=== PATIENT | male | born 1985 | race Caucasian/White ===

== ENCOUNTER 2019-02-02 08:41 | Emergency (ER) | payer OTHER ==
[2019-02-02] MEDS ORDERED: Ondansetron ODT TAB* 4 MG SL PRN (08:58)
--- NOTE | 2019-02-02 09:05 | ED ---
Head Injury - HPI Summary HPI Summary: The patient is a 33 y/o M presenting to [facility] with a chief complaint of head injury two days ago. He reports that he was trying to fix something on the back of his truck when he hit the occipital head on the tailgate and the frontal head on the trailer. He has since been experiencing headache, diplopia, nausea, and right neck pain. He denies vomiting. He endorses mild short term memory loss but denies LOC with the event. His current symptoms are rated 3/10 in severity. He notes previous head injuries. PMHx: prediabetes. Nonsmoker, occasional EtOH, no substance use. Medications reviewed. Allergies noted. - History Of Current Complaint Chief Complaint: EDHeadInjury Stated Complaint: HEAD INJURY PER PT Hx Obtained From: Patient Mechanism Of Injury: Other - hit posterior head on tailgate and anterior head on trailer of truck Onset/Duration: Started Days Ago - two, Still Present Onset of Pain: Immediate Severity Currently: Mild Severity Initially: Mild Pain Intensity: 3 Pain Scale Used: 0-10 Numeric Location of Head Injury: Frontal, Occipital Character: Dull Aggravating Factor(s): Other: - nothing Alleviating Factor(s): Other: - nothing Associated Signs And Symptoms: Memory Loss, Neck Pain - right side, Nausea, Headache, Visual Changes - diplopia, Other: - Negative: vomiting, LOC - Allergies/Home Medications Allergies/Adverse Reactions: Allergies Allergy/AdvReac Type Severity Reaction Status Date / Time No Known Allergies Allergy Verified 02/02/19 08:46 Home Medications: Home Medications NK [No Home Medications Reported] 02/02/19 [History Confirmed 02/02/19] PMH/Surg Hx/FS Hx/Imm Hx Endocrine/Hematology History: Reports: Hx Diabetes - PRE NO MEDS AT THIS TIME Cardiovascular History: Denies: Hx Hypercholesterolemia, Hx Hypertension, Hx Pacemaker/ICD History: Denies: Hx Renal Disease Sensory History: Denies: Hx Hearing Aid Psychiatric History: Denies: Hx Panic Disorder - Surgical History Surgical History: Yes Surgery Procedure, Year, and Place: RIGHT KNEE [id number] Infectious Disease History: No Infectious Disease History: Denies: Traveled Outside the [place] in Last 30 Days - Family History Known Family History: Positive: Cardiac Disease Negative: Hypertension, Diabetes - Social History Alcohol Use: Occasionally Hx Substance Use: No Substance Use Type: Reports: None Hx Tobacco Use: No Smoking Status (MU): Never Smoked Tobacco Review of Systems Positive: Diplopia Positive: Nausea. Negative: Vomiting Positive: Other - right-sided neck pain Neurological: Other - mild memory loss; Negative: LOC Positive: Headache All Other Systems Reviewed And Are Negative: Yes Physical Exam - Summary Physical Exam Summary: VITAL SIGNS: Reviewed. GENERAL: Patient is a well-developed and nourished male who is lying comfortable in the stretcher. Patient is not in any acute respiratory distress. HEAD AND FACE: No signs of trauma. No ecchymosis, hematomas or skull depressions. No sinus tenderness. EYES: PERRLA, EOMI x 2, No injected conjunctiva, no nystagmus. EARS: Hearing grossly intact. Ear canals and tympanic membranes are within normal limits. MOUTH: Oropharynx within normal limits. NECK: Supple, trachea is midline, no adenopathy, no JVD, no carotid bruit, no c- spine tenderness, neck with full ROM. CHEST: Symmetric, no tenderness at palpation. LUNGS: Clear to auscultation bilaterally. No wheezing or crackles. CVS: Regular rate and rhythm, S1 and S2 present, no murmurs or gallops appreciated. ABDOMEN: Soft, non-tender. No signs of distention. No rebound, no guarding, and no masses palpated. Bowel sounds are normal. EXTREMITIES: FROM in all major joints, no edema, no cyanosis or clubbing. NEURO: Alert and oriented x 3. No acute neurological deficits. Speech is normal and follows commands. SKIN: Dry and warm. GCS: 15. Triage Information Reviewed: Yes Vital Signs On Initial Exam: Initial Vitals Temp Pulse Resp BP Pulse Ox 98.3 F 63 16 131/88 98 02/02/19 08:42 02/02/19 08:42 02/02/19 08:42 02/02/19 08:42 02/02/19 08:42 Vital Signs Reviewed: Yes - Christian Coma Scale Best Eye Response: 4 - Spontaneous Best Motor Response: 6 - Obeys Commands Best Verbal Response: 5 - Oriented Coma Scale Total: 15 Procedures - Sedation Patient Received Moderate/Deep Sedation with Procedure: No Diagnostics - Vital Signs Vital Signs Temp Pulse Resp BP Pulse Ox 02/02/19 08:42 98.3 F 63 16 131/88 98 - Laboratory Lab Statement: Any lab studies that have been ordered have been reviewed, and results considered in the medical decision making process. - CT Brain CT CT Interpretation Completed By: Radiologist Summary of CT Findings: Impression: No intracranial mass or hemorrhage is noted. ED physician has reviewed this report. Cervical Spine CT CT Interpretation Completed By: Radiologist Summary of CT Findings: Impression: Degenerative disc disease at C6-C7 and C7- T1 with no fracture. ED physician has reviewed this report. Re-Evaluation - Re-Evaluation First Eval Re-Evaluation Time: 11:00 Change: Improved Comment: He is feeling better after medications. We discussed all results and plan for discharge. Head Injury Course/Dx Assessment/Plan: This patient is a 33-year-old male who presents to the emergency department with a chief complaint of having head injury. C-spine CT impression: Degenerative disc disease at C6 and C7 and C7-T1 with no fracture. Head CT impression: No intercurrent mass or hemorrhage is noted. In the ED course, the patient was given Zofran for nausea and vomiting. At this point the patient is feeling better. I discussed all the findings and test results with the patient. Patient was instructed to return to the emergency room immediately if any of the symptoms return or worsen. Patient understand and agree. Neurological exam before discharge: Patient is alert and oriented x 3. No acute neurological deficits. Patient's vital signs are stable. Patient is to follow up with CPP in the next 2 3 days. They understand and agree. Plan of care was discussed with the patient and patient understands and agrees with the plan of care. All questions were answered at patient satisfaction. There were no further complaints or concerns. - Diagnoses Differential Diagnosis/HQI/PQRI: Cervical Sprain, Concussion Without LOC, Contusion, Hematoma, Intracranial Bleed Provider Diagnoses: Head contusion Discharge ED - Sign-Out/Discharge Documenting (check all that apply): Patient Departure - Patient will be discharged home. - Discharge Plan Condition: Stable Disposition: HOME Patient Education Materials: Head Injury (ED) Referrals: Jaja Rothman MD [Primary Care Provider] - 3 Days Additional Instructions: Follow up with your primary care provider in 2-3 days. Return to the emergency department for any new or worsening symptoms. - Billing Disposition and Condition Condition: STABLE Disposition: Home - Attestation Statements Document Initiated by Scribe: Yes Documenting Scribe: Floresita Mcgarry Provider For Whom Scribe is Documenting (Include Credential): Dr. Garfield Anne MD Scribe Attestation: I, Floresita Mcgarry, scribed for Dr. Garfield Anne MD on 02/03/19 at 1840. Scribe Documentation Reviewed: Yes Provider Attestation: The documentation as recorded by the Floresita de leon accurately reflects the service I personally performed and the decisions made by me, Dr. Garfield Anne MD Status of Scribe Document: Viewed
[2019-02-02 11:23] VITALS: BP 148/90
== END 2019-02-02 11:22 | disposition home or self-care (01) ==
LOC: ED 08:41
DX: S00.93XA Contusion of unspecified part of head, initial encounter (principal); W22.09XA Striking against other stationary object, initial encounter; Y92.9 Unspecified place or not applicable
CPT/HCPCS: 70450; 72125; 99282